=== PATIENT | male | born 1960 | race Two or more races ===

== ENCOUNTER → 2023-09-06 | Outpatient (CLI) | payer OTHER ==
--- NOTE | 2023-09-06 12:33 | CTL ---
EXAMINATION TYPE: CT Low Dose Lung DATE OF EXAM ORDERED: 09/06/2023 HISTORY: 62-year-old male F1 7.210, nicotine dependence, smoker with 50 pack-year history. Lung cance r screening CT DLP: 71.[address] CTDI: 1.6 mGy Automated exposure control for dose reduction was used. SCREENING VISIT: Baseline COMPARISON: None TECHNIQUE: Low dose computed tomography scan was performed through the chest at 1 mm thick sections a nd reconstructed images in multiple planes at 1 mm and [address] DIAGNOSTIC QUALITY: Satisfactory FINDINGS: Heart is normal size without pericardial effusion. LAD and circumflex coronary calcifications are pre sent. Ectatic ascending aorta 3.6 cm with conventional arch vessel branching anatomy. Prominent but nonenlarged 8 mm lower paratracheal lymph node. No thoracic lymphadenopathy by CT size criteria. Mild diffuse bronchial wall thickening. Moderate to advanced and exchange. Biapical pleural parenchym al scarring with associated calcifications left greater than right apices. 5 mm fissural pulmonary nodule lateral right base, axial image 251. 3 mm fissural pulmonary nodule just medial to this, axial image 251. No consolidation or pleural effusion. Visualized upper abdomen shows no gross abnormality. Bones accentuated midthoracic kyphosis. Chronic inferior endplate deformity T10. No osseous destructi ve process. IMPRESSION: 1. LungRADS Category 2 (benign appearance or behavior, <1% chance of malignancy). A couple pulmonary nodules measuring up to 5 mm on baseline screening. 2. 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 Recommend smoking cessation. 3. Some LAD and circumflex coronary artery calcifications. CT LUNG RAD AND CT CHEST RECOMMENDATION: Lung-Rad 2 Benign Appearance or Behavior: Continue annual sc reening with LDCT in 12 months. S Modifier (other clinically significant findings): None
== END | disposition home or self-care (01) ==
LOC: RADCTMAIN 10:43
PROVIDERS: ATTEND Family Medicine
DX: Z12.2 Encounter for screening for malignant neoplasm of respiratory organs (principal); F17.210 Nicotine dependence, cigarettes, uncomplicated; J43.9 Emphysema, unspecified; I25.10 Atherosclerotic heart disease of native coronary artery without angina pectoris; J44.9 Chronic obstructive pulmonary disease, unspecified; R91.8 Other nonspecific abnormal finding of lung field
CPT/HCPCS: 71271

== ENCOUNTER → 2024-09-27 | Outpatient (CLI) | payer OTHER ==
--- NOTE | 2024-09-27 08:17 | CTL ---
EXAMINATION TYPE: CT Low Dose Lung DATE OF EXAM: 09/27/2024 7:54 AM COMPARISON: 09/06/2023 CLINICAL INDICATION: Male, 63 years old with history of Lung sacreening; Lung screening, encounter fo r malignant neoplasm, nicotine dependence, cigarettes, uncomplicated (current smoker), history of tob acco use. TECHNIQUE: Multiple axial non-contrast scans were obtained from approximately the lung apices through the upper abdomen. Coronal and sagittal reformatted images were obtained. Low dose technique was uti lized. MIP were created on a separate workstation and submitted for review. CT DLP: 49.40 mGycm, Automated exposure control for dose reduction was used. CT Contrast: Contrast used: None Oral contrast used: None FINDINGS: Lack of intravenous contrast and low dose technique limits the evaluation of the vascular and soft ti ssue structures. LUNGS: No evidence of pulmonary fibrosis. No evidence of focal consolidation, pneumothorax or pleural effusion. Centrilobular emphysema changes. Nodules: RUL: New 5 mm series 4 image 138. RML: None RLL: Intrafissural lymph nodes series 4 image 252 and 245 and 227 and 209 are stable HEATHER: Calcified pulmonary nodule and/or scarring along the pleura. LLL: New 4 mm series 5 image 51. new Superior segment 4 mm series 4 image 152 AIRWAY: Patent and unremarkable. HEART: Size within normal limits. Moderate coronary artery calcifications present. MEDIASTINUM: No gross evidence of adenopathy. VASCULATURE: No aortic aneurysm. MUSCULOSKELETAL: No acute osseous abnormalities SOFT TISSUES/LYMPH NODES: Unremarkable. LOWER NECK: No significant findings. UPPER ABDOMEN: No significant findings. IMPRESSION: 1. Few scattered new pulmonary nodules measured to 5 mm in the right upper lobe. Continued surveillan ce with low-dose lung cancer screening recommended. 2. Severe emphysema. 3. Moderate coronary artery atherosclerosis. CT LUNG RAD AND CT CHEST RECOMMENDATION: Lung-Rad 2 Benign Appearance or Behavior: Continue annual sc reening with LDCT in 12 months. S Modifier (other clinically significant findings): None Recommend smoking cessation (if current smoker), or continuation of smoking cessation (if prior smoke r). Annual screening for lung cancer with low-dose computed tomography is recommended in adults ages 55 to 77 years who have a 30 pack-year smoking history and currently smoke or have quit within the pa st 15 years. Screening should be discontinued once a person has not smoked for 15 years or develops a health problem that substantially limits life expectancy or the ability or willingness to have curat apple lung surgery. Lung rads [email or web address] [email or web address], , 09/27/2024 8:15 AM
== END | disposition home or self-care (01) ==
LOC: RADCTMAIN 07:15
PROVIDERS: ATTEND Nurse Practitioner Acute Care
DX: Z12.2 Encounter for screening for malignant neoplasm of respiratory organs (principal); F17.210 Nicotine dependence, cigarettes, uncomplicated; J43.2 Centrilobular emphysema; I25.10 Atherosclerotic heart disease of native coronary artery without angina pectoris; R91.8 Other nonspecific abnormal finding of lung field
CPT/HCPCS: 71271